=== PATIENT | male | born 1970 | race Caucasian/White ===

== ENCOUNTER 2019-07-23 08:19 | Emergency (ER) | payer BC, OTHER ==
--- NOTE | 2019-07-23 08:35 | EDM.PDOC ---
ED HPI GENERAL MEDICAL PROBLEM - General Chief Complaint: Cardiovascular Problem Stated Complaint: POSITIVE COVID-19 SOB Time Seen by Provider: 07/23/19 08:22 - History of Present Illness INITIAL COMMENTS - FREE TEXT/NARRATIVE: 48-year-old patient presents the emergency room with worsening shortness of breath. Patient is Covid 19 positive diagnosed on the 15 of July but has been sick since the . They the patient noticed shortness of breath and dyspnea with activity. He seems to be doing fine when he is resting however only has a shortness of breath with activity. Yesterday he had a great day he really felt pretty good. The patient denies any chest pain he has a hard time describing his shortness of breath he just states "he cannot breathe ". He is not aware of any fevers or chills he is afebrile at this time. Generalized Pain Score (Numeric/FACES): 8 - Related Data Allergies Allergy/AdvReac Type Severity Reaction Status Date / Time No Known Allergies Allergy Verified 07/23/19 08:26 Home Meds: Home Meds Albuterol Sulfate [Albuterol Sulfate Hfa] 1 - 2 puff INH Q4H PRN 07/23/19 [ History] Fluticasone Propionate [Flonase Allergy Relief] 1 spray NASBOTH DAILY 07/23/19 [ History] Zolpidem Tartrate 5 mg PO BEDTIME PRN 07/23/19 [History] lisinopriL [Lisinopril] 10 mg PO DAILY 07/23/19 [History] ED ROS GENERAL - Review of Systems Review Of Systems: See Below Constitutional: Denies: Fever, Chills HEENT: Reports: No Symptoms Respiratory: Reports: Shortness of Breath, Cough, Sputum. Denies: Hemoptysis Cardiovascular: Reports: No Symptoms Endocrine: Reports: No Symptoms GI/Abdominal: Reports: No Symptoms Neurological: Reports: No Symptoms ED EXAM, GENERAL - Physical Exam Exam: See Below Exam Limited By: No Limitations General Appearance: Alert, No Apparent Distress, Other (Doing well with resting) Eye Exam: Bilateral Eye: Normal Inspection Ears: Normal External Exam, Normal Canal, Hearing Grossly Normal, Normal TMs Nose: Normal Inspection, Normal Mucosa, No Blood Throat/Mouth: Normal Inspection, Normal Lips, Normal Teeth, Normal Gums, Normal Oropharynx, Normal Voice, No Airway Compromise Head: Atraumatic, Normocephalic Neck: Normal Inspection, Supple, Non-Tender, Full Range of Motion Respiratory/Chest: No Respiratory Distress, Lungs Clear, Normal Breath Sounds Cardiovascular: Regular Rate, Rhythm, No Edema, No Murmur GI/Abdominal: Normal Bowel Sounds, Soft, Non-Tender Extremities: Normal Inspection, No Pedal Edema Neurological: Alert, Oriented, Normal Cognition Course - Vital Signs Last Recorded V/S: Last Vital Signs Temp 36.8 C 07/23/19 10:50 Pulse 88 07/23/19 10:50 Resp 22 H 07/23/19 10:50 BP 118/86 07/23/19 10:50 Pulse Ox 95 07/23/19 10:50 - Orders/Labs/Meds Labs: Laboratory Tests 07/23/19 07/23/19 07/23/19 Range/Units 09:11 09:11 09:11 WBC 3.36 L (4.23-9.07) K/mm3 RBC 4.72 (4.63-6.08) M/mm3 Hgb 14.5 (13.7-17.5) gm/dl Hct 42.4 (40.1-51.0) % MCV 89.8 (79.0-92.2) fl MCH 30.7 (25.7-32.2) pg MCHC 34.2 (32.2-35.5) g/dl RDW Std Deviation 40.9 (35.1-43.9) fL Plt Count 173 (163-337) K/mm3 MPV 8.8 L (9.4-12.3) fl Neutrophils % (Manual) 68 H (40-60) % Band Neutrophils % 4 (0-10) % Lymphocytes % (Manual) 25 (20-40) % Atypical Lymphs % 0 % Monocytes % (Manual) 3 (2-10) % Eosinophils % (Manual) 0 L (0.8-7.0) % Basophils % (Manual) 0 L (0.2-1.2) Platelet Estimate Adequate RBC Morph Comment Normal Sodium 142 (136-145) mEq/L Potassium 4.3 (3.5-5.1) mEq/L Chloride 105 (98-107) mEq/L Carbon Dioxide 27 (21-32) mEq/L Anion Gap 14.3 (5-15) BUN 14 (7-18) mg/dL Creatinine 0.9 (0.7-1.3) mg/dL Est Cr Clr Drug Dosing 103.64 mL/min Estimated GFR (MDRD) > 60 (>60) mL/min BUN/Creatinine Ratio 15.6 (14-18) Glucose 103 (74-106) mg/dL Calcium 8.8 (8.5-10.1) mg/dL Ferritin 730 H (26-388) ng/ml Total Bilirubin 0.4 (0.2-1.0) mg/dL AST 27 (15-37) U/L ALT 37 (16-63) U/L Alkaline Phosphatase 38 L (46-116) U/L C-Reactive Protein 7.8 H* (<1.0) mg/dL Total Protein 7.3 (6.4-8.2) g/dl Albumin 2.7 L (3.4-5.0) g/dl Globulin 4.6 gm/dL Albumin/Globulin Ratio 0.6 L (1-2) - Re-Assessments/Exams Free Text/Narrative Re-Assessment/Exam: 07/23/19 09:17 Chest x-ray shows bilateral peripheral patchy infiltrates worse on the right compared to the left the seem to involve middle and lower lobes on the right and lower lobe on the left. Labs pending 07/23/19 10:23 Labs as expected he is not thrombocytopenic ferritin is elevated he has a relatively low WBC count without lymphopenia C-reactive protein is elevated. His sats have been 96 to 98% respiratory rate was initially 22 when he came in when I just visited with the patient it was 17-18 a little higher if he was talking quite a bit. I think the patient could safely go home with recommendations to lay flat in his bed as much as he can tolerate. He is welcome to return to the emergency room with any questions problems or worsening symptoms. 07/23/19 17:46 The patient left the emergency department this morning and I checked with him towards the end of my shift this evening and he is doing about the same. He has no complaints at this time. Departure - Departure Time of Disposition: 10:25 Disposition: Home, Self-Care 01 Clinical Impression: COVID-19 virus infection - Discharge Information Instructions: Coronavirus Information 07/07/19 Referrals: Fridrich,Amanda F, PA-C [Primary Care Provider] - Forms: ED Department Discharge Additional Instructions: Return to the emergency room with any questions problems or worsening symptoms. Stay completely flat at least 18 hours of the day. Drink fluids as normal but do not push fluids. After your symptoms improve and you are completely back to normal no fevers no chills no cough consider yourself contagious for a solid 72 hours after this point. So remain on strict home isolation during this time. Sepsis Event Note - Focused Exam Vital Signs: Vital Signs Temp Pulse Resp BP Pulse Ox 07/23/19 10:50 36.8 C 88 22 H 118/86 95 07/23/19 08:20 35.9 C L 94 24 H 114/89 98 Date Exam was Performed: 07/23/19 Time Exam was Performed: 17:45
--- NOTE | 2019-07-23 09:22 | CR ---
Chest: Portable view of the chest was obtained. Comparison: No previous chest imaging. Patchy areas of increased density are noted throughout both sides of the chest. Heart size and mediastinum are normal. Bony structures are unremarkable. Impression: 1. Patchy areas of increased density throughout both sides the chest. Findings are compatible with rather diffuse bronchopneumonia either bacterial or viral in etiology. Diagnostic code #3 This report was dictated in [facility]T
== END 2019-07-23 10:55 | disposition home or self-care (01) ==
LOC: SUPCPDRO 08:19 → JD.ED 08:19
DX: U07.1 COVID-19 (principal); Z79.899 Other long term (current) drug therapy
CPT/HCPCS: 36415; 71045; 71045-26; 80053; 82728; 85007; 85027; 86140; 99282; 99285-25

== ENCOUNTER 2022-10-08 22:39 | Emergency (ER) | payer BC ==
[2022-10-08] MEDS ORDERED: methylPREDNISolone Sodium Succinate 125 MG/2 ML SDV IVPUSH ONE (22:45)
[2022-10-08] MEDS ORDERED: Sodium Chloride 0.9% 10 ML Syringe FLUSH PRN (22:45)
[2022-10-08] MEDS ORDERED: Famotidine 20 MG/2 ML SDV IVPUSH ONE (22:45)
[2022-10-08] MEDS ORDERED: Sodium Chloride 0.9% 1,000 ML IV ONE (22:45)
[2022-10-08] MEDS ORDERED: diphenhydrAMINE 50 MG/ML SDV IVPUSH ONE (22:45)
== END 2022-10-09 07:20 | disposition home or self-care (01) ==
LOC: JD.ED 22:39
DX: Q38.2 Macroglossia (principal); I10 Essential (primary) hypertension; Z79.82 Long term (current) use of aspirin; Z79.899 Other long term (current) drug therapy
CPT/HCPCS: 96374; 96375; 99283; J1200; J2930; J3490; J7030

== ENCOUNTER 2022-10-09 11:21 | Emergency (ER) | payer BC ==
[2022-10-09] MEDS ORDERED: Cetirizine 10 MG Tab PO ONE (11:50)
== END 2022-10-09 13:37 | disposition home or self-care (01) ==
LOC: JD.ED 11:21
DX: J02.9 Acute pharyngitis, unspecified (principal); I10 Essential (primary) hypertension; Z86.16 Personal history of COVID-19; Z79.82 Long term (current) use of aspirin; Z79.899 Other long term (current) drug therapy
CPT/HCPCS: 87651; 99283; A9270

== ENCOUNTER 2022-10-11 05:12 | Emergency (ER) | payer BC ==
[2022-10-11] MEDS ORDERED: predniSONE 20 MG Tab PO STA (05:48)
== END 2022-10-11 08:01 | disposition home or self-care (01) ==
LOC: JD.ED 05:12
DX: L50.0 Allergic urticaria (principal); I10 Essential (primary) hypertension; K21.9 Gastro-esophageal reflux disease without esophagitis; E66.9 Obesity, unspecified; Z68.38 Body mass index [BMI] 38.0-38.9, adult; Z79.82 Long term (current) use of aspirin; Z79.899 Other long term (current) drug therapy; Z87.891 Personal history of nicotine dependence; Z86.16 Personal history of COVID-19
CPT/HCPCS: 99283; J7512